=== PATIENT | female | born 1955 | race Caucasian/White ===

== ENCOUNTER → 2021-01-24 13:47 | Outpatient (CLI) | payer OTHER, SELFPAY ==
[2021-01-24] MEDS: COVID-19 VACC, Ad26(JANSSEN)/PF 0.5 ML IM (13:56)
== END ==
PROVIDERS: Visit Provider Internal Medicine
DX: Z23 Encounter for immunization (principal)
CPT/HCPCS: 0031A; 91303

== ENCOUNTER → 2021-11-21 13:30 | Outpatient (CLI) | payer OTHER, SELFPAY ==
--- NOTE | 2021-11-21 | DI.MG.S_ITS ---
BILATERAL DIGITAL SCREENING MAMMOGRAM 3D/2D WITH CAD: 11/21/2021 CLINICAL: Routine screening. Comparison is made to exams dated: 03/21/2015 mammogram, 03/16/2014 mammogram, and 03/09/2013 mammogram - outside location. There are scattered fibroglandular elements in both breasts. Current study was also evaluated with a Computer Aided Detection (CAD) system. No significant masses, calcifications, or other findings are seen in either breast. There has been no significant interval change. IMPRESSION: NEGATIVE There is no mammographic evidence of malignancy. A 1 year screening mammogram is recommended. This exam was interpreted at Station ID: [id number]. NOTE: For mammograms, a report in lay terms will be sent to the patient. Approximately 15% of breast malignancies will not be visualized mammographically. In the management of a palpable breast mass, a negative mammogram must not discourage biopsy of a clinically suspicious lesion. Electronically Signed By: Raymundo Kinsey M.D. at/mary:11/21/2021 16:40:44 letter sent: Normal Exam ACR BI-RADS Category 1: Negative [id number]
== END ==
PROVIDERS: PCP Student in an Organized Health Care Education/Training Program; Referring Provider Student in an Organized Health Care Education/Training Program; Visit Provider Student in an Organized Health Care Education/Training Program
DX: Z12.31 Encounter for screening mammogram for malignant neoplasm of breast (principal)
CPT/HCPCS: 77063; 77067

== ENCOUNTER 2022-08-15 09:52 | Emergency (ER) | payer MEDICARE, SELFPAY ==
[2022-08-15] VITALS (23 sets, daily range): BP systolic 162–192; BP diastolic 78–96; PULSE 67–96; RESP 14–24; TEMP 36.7; O2SAT 91–100; BMI 22.0
--- NOTE | 2022-08-15 10:13 | DI.RAD.S_ITS ---
PROCEDURE: XR ANKLE LT 2V INDICATIONS: fracture TECHNIQUE: 2 views of the ankle were acquired. COMPARISON: None. FINDINGS: Bones: There is complete disruption of ankle mortise with lateral dislocation at tibiotalar joint. There is chronic appearing deformity of the talus and talar dome. Underlying fracture cannot be excluded. Nondisplaced fracture involving distal fibular shaft is also likely present. Soft tissues: No tibiotalar joint effusion. Achilles tendon appears normal. IMPRESSION: Fracture and dislocation involving left ankle as above. Dictated by: Ernie Anne M.D. on 08/15/2022 at 10:44 Approved by: Ernie Anne M.D. on 08/15/2022 at 10:45
[2022-08-15] MEDS: HYDROMORPHONE 1 MG INJ IV (10:19)
[2022-08-15] MEDS: SODIUM CHLORIDE 0.9% 1,000 ML 125 ML IV (10:23)
--- NOTE | 2022-08-15 10:25 | ED_ITS ---
HPI - Extremity Injury (Lower) General Chief Complaint: Extremity Injury, Lower Stated Complaint: fall/lt ankle deformity. Time Seen by Provider: 08/15/22 10:13 Source: patient and EMS Mode of arrival: Ambulatory Limitations: no limitations History of Present Illness HPI Narrative: Patient is a 66-year-old female here for evaluation of an obvious left ankle dislocation and potential fracture. It is in an Aircast placed by EMS. She did receive medication prior to arrival as well. She states she was walking down some stairs where she missed the last couple stairs. She got her foot caught on the stairs and fell forward. She can not stand afterwards. No other injuries from the event. No prior injuries to this ankle. Related Data Previous Rx's Medication Instructions Recorded hydrocodone 5 mg-acetaminophen 325 1 tab PO Q4-6H PRN pain #20 tabs 08/15/22 mg tablet Allergies Allergy/AdvReac Type Severity Reaction Status Date / Time No Known Drug Allergies Allergy Verified 08/15/22 10:19 Review of Systems Constitutional Constitutional: Reports system reviewed and no additional complaints, except as documented Musculoskeletal Musculoskeletal: Reports system reviewed and no additional complaints, except as documented Integumentary/Breasts Skin/Breast: Reports system reviewed and no additional complaints, except as documented Neurologic Neurologic: Reports system reviewed and no additional complaints, except as documented Hematologic/Lymphatic On Anticoagulants: No Patient History Medical History Healthy adult Social History Smoking Status: Never smoker Smoking Status: Never smoker alcohol intake frequency: holidays/special occasions only Substance Use Type: does not use Exam Initial Vital Signs Initial Vital Signs: Vital Signs Temperature 98.0 F 08/15/22 09:55 Pulse Rate 92 H 08/15/22 09:55 Respiratory Rate 18 08/15/22 09:55 Blood Pressure 192/94 H 08/15/22 09:55 Pulse Oximetry 97 08/15/22 09:55 Oxygen Delivery Method 08/15/22 09:55 Const General: cooperative and healthy appearing HENCA Head: normal to inspection and normocephalic Resp Effort & Inspection: normal respiratory effort Auscultation: clear to auscultation bilaterally Cardio Rate: regular rate Rhythm: regular rhythm Pulses: dorsalis pedis present on the left GI Inspection: normal to inspection Skin General: no rashes or lesions noted Neuro Sensory Exam: no sensory deficits noted Extrem General: capillary refill normal Other: Obvious deformity to the left ankle. No left knee tenderness. No left hip tenderness. Psych Appearance: grossly normal and well kempt Procedures Orthopedic Fracture Reduction Fracture #1: Time Out Performed: Yes Side: left Fracture Reduction Location: tibia and fibula Analgesia: procedural sedation Technique: direct manipulation Post Reduction X-rays Demonstrate: acceptable reduction Post-reduction neuro exam: no change Post-reduction vascular exam: no change Splint Applied: Yes Patient Tolerated Procedure: Well Orthopedic Joint Reduction Joint #1: Time Out Performed: Yes Side: left Joint Reduction Location: ankle Analgesia: procedural sedation Technique used: direct manipulation Post-reduction neuro exam: no change Post-reduction vascular: no change Post Reduction X-Ray Obtained: Yes Post Reduction X-Ray Results: reduced Splint Applied: Yes Patient Tolerated Procedure: Well and No complications Orthopedic Splinting/Casting Injury #1: Side: left Lower Extremity Injury Location: ankle Lower Extremity Immobilizer: posterior splint and stirrup splint Other Orthopedic Equipment: crutches Post splinting neuro exam: no change Post splinting vascular exam: no change Placed by: Provider Procedural Sedation Consent signed: Yes Time out performed: Yes Indication: fracture/dislocation reduction ASA Class: I Mallampati Airway Classification: Class II Preparation: nurse monitoring applied, pulse oximeter, capnometry used, supplemental O2 applied, suction/airway equipment at bedside and IV secured IV Propofol dose (mg): 60 Intraservice time/total sedation time (min): 20 ED Sedation Level: Moderate (Concious) Patient Tolerated Procedure: Well and No complications Complications: none Course Orders Ordered: ED Orders 08/15/22 10:00 COVID19 -Nasal RAPID/Pre-Proc Stat 08/15/22 10:13 XR ankle LT 2V Stat 08/15/22 10:49 XR ankle LT 2V Stat 08/15/22 10:54 CT LE LT wo con Stat Sodium Chloride (Normal Saline 0.9%) 1,000 mls @ 125 mls/hr IV CONT ABDULAZIZ Last Admin: 08/15/22 10:23 Dose: 125 mls/hr Documented By: LexieG Discontinued Medications Hydromorphone HCl (Hydromorphone 1 Mg Inj) 1 mg IV NOW ONE Stop: 08/15/22 10:14 Last Admin: 08/15/22 10:19 Dose: 1 mg Documented By: DALIA Propofol (Propofol 200 Mg/20 Ml Vial) 100 mg IV NOW ONE Stop: 08/15/22 10:15 Last Admin: 08/15/22 10:32 Dose: 60 mg Documented By: BT Vital Signs Vital signs: Vital Signs - 8 hr 08/15/22 09:55 08/15/22 10:37 08/15/22 10:57 Temperature 98.0 F Pulse Rate 92 H 80 81 Respiratory Rate 18 18 16 Blood Pressure 192/94 H 175/85 H 182/91 H Pulse Oximetry 97 99 96 Oxygen Delivery Method Room Air Oxygen Flow Rate 1 2 08/15/22 10:45 08/15/22 10:50 08/15/22 10:52 Temperature Pulse Rate 70 70 96 H Respiratory Rate 14 16 24 Blood Pressure 177/90 H 173/85 H Pulse Oximetry 97 98 Oxygen Delivery Method Oxygen Flow Rate 2 2 MDM - Extremity Injury (Lower) Lab Data Labs: Lab Results 08/15/22 Range/Units 10:00 SARS-CoV-2 (PCR) Negative (Negative) Point of Care Testing Test Results Not applicable Imaging Data Extremity x-ray #1: Radiologist's Impression: [place] [address] XRay Report Signed Patient: Aster Munroe MR#: [id number] : 1955 Acct:[id number] Age/Sex: 66 / F Date of Service: 08/15/22 Loc: ED Accession Number: [id number] ?? Procedure: XR ankle LT 2V Ordering Provider: Harlan Pena D.O. PROCEDURE:? XR ANKLE LT 2V ? INDICATIONS:? fracture ? TECHNIQUE:? 2 views of the ankle were acquired.? ? COMPARISON:? None. ? FINDINGS:? ? Bones:? There is complete disruption of ankle mortise with lateral dislocation at tibiotalar joint.? There is chronic appearing deformity of the talus and talar dome.? Underlying fracture cannot be excluded.? Nondisplaced fracture involving distal fibular shaft is also likely present. ? Soft tissues:? No tibiotalar joint effusion.? Achilles tendon appears normal.? ? ? IMPRESSION:? Fracture and dislocation involving left ankle as above. ? ? ? Dictated by: Ernie Anne M.D. on 08/15/2022 at 10:44 ? ? Approved by: Ernie Anne M.D. on 08/15/2022 at 10:45?? Extremity x-ray #2: Radiologist's Impression: [address] [address] XRay Report Signed Patient: Aster Munroe MR#: [id number] : 1955 Acct:[id number] Age/Sex: 66 / F Date of Service: 08/15/22 Loc: ED Accession Number: [id number] ?? Procedure: XR ankle LT 2V Ordering Provider: Harlan Pena D.O. PROCEDURE:? XR ANKLE LT 2V ? INDICATIONS:? post reduction ? TECHNIQUE:? 2 views of the ankle were acquired.? ? COMPARISON:? Located Within [facility], , XR ANKLE LT 2V, 08/15/2022, 10:21. ? FINDINGS:? A splint is present, obscuring fine bony detail. ? Bones:? There is improved alignment of the previously seen ankle fracture dislocation with residual moderately displaced fractures of the medial and lateral malleoli.? Posterior malleolus is not well seen. ? Soft tissues:? No tibiotalar joint effusion.? Achilles tendon appears normal.? ? ? IMPRESSION:? Improved alignment of ankle fracture dislocation. ? ? Dictated by: Jun Mills M.D. on 08/15/2022 at 11:07 ? ? Approved by: Jun Mills M.D. on 08/15/2022 at 11:[address]: Radiologist's Impression: [address] [address] [address] Scan Report Signed Patient: Aster Munroe MR#: [id number] : 1955 Acct:[id number] Age/Sex: 66 / F Date of Service: 08/15/22 Loc: ED Accession Number: [id number] ?? Procedure: CT LE LT wo con Ordering Provider: Harlan Pena D.O. PROCEDURE:? CT LE LT W CON ? INDICATIONS:? fx dislocation L ankle ? TECHNIQUE:? Noncontrast 1-1.5 mm axial sections acquired from above the tibiotalar joint to the bottom of the calcaneus, with coronal and sagittal reformats.? ? COMPARISON:? Located Within [facility], CR, XR ANKLE LT 2V, 08/15/2022, 10:47. ? FINDINGS:? Image quality:? Excellent.? ? Bones:? There is a moderately displaced comminuted fracture of the medial malleolus.? Moderately displaced comminuted fracture of the distal fibula.? Mildly displaced comminuted fracture of the medial talus is present. ? Soft tissues:? Moderate diffuse subcutaneous fat stranding, consistent with soft tissue injury. ? IMPRESSION:? 1. Fractures of the distal tibia, fibula, and medial talus as described above. 2. Diffuse soft tissue injury. ? ? Dictated by: Jun Mills M.D. on 08/15/2022 at 11:39 ? ? Approved by: Jun Mills M.D. on 08/15/2022 at 11:41 MDM Narrative Medical decision making narrative: Patient is improved after treatments here in the ER. CT scan does show medial and lateral malleolar fracture along with a talus fracture. She remains neurovascularly intact. Patient ambulated with a walker without putting pressure on her left leg. She felt more steady with a walker then with crutches. Will provide pain control and follow-up instructions. She was given care instructions and return precautions. She expressed understanding and agreement. Discharge Plan Departure Patient Disposition: Home Clinical Impression: Ankle fracture, left Instructions: How to Choose and Use a Walker, DI for Ankle Fracture, How to Take Care of Your Splint Activity Restrictions/Additional Instructions: The splint as placed today does need to stay on it stay clean and stay dry. You need to treat it like a cast. Do not walk on your left leg. Call the Orthopedic Department at the number provided below for a follow-up. Return to the emergency department for any new or worsening symptoms. Prescriptions: New hydrocodone-acetaminophen 5-325 mg tablet 1 tab PO Q4-6H PRN (Reason: pain) Qty: 20 0RF Referrals: Raina Valenzuela MD [Physician] - Eva Summers MD [Primary Care Provider] -
[2022-08-15 10:32] LABS: COVID19 -Nasal RAPID Negative (Negative)
[2022-08-15] MEDS: propofoL 200 MG/20 ML VIAL 100 MG IV (10:32)
--- NOTE | 2022-08-15 10:49 | DI.RAD.S_ITS ---
PROCEDURE: XR ANKLE LT 2V INDICATIONS: post reduction TECHNIQUE: 2 views of the ankle were acquired. COMPARISON: [facility], CR, XR ANKLE LT 2V, 08/15/2022, 10:21. FINDINGS: A splint is present, obscuring fine bony detail. Bones: There is improved alignment of the previously seen ankle fracture dislocation with residual moderately displaced fractures of the medial and lateral malleoli. Posterior malleolus is not well seen. Soft tissues: No tibiotalar joint effusion. Achilles tendon appears normal. IMPRESSION: Improved alignment of ankle fracture dislocation. Dictated by: Jun Mills M.D. on 08/15/2022 at 11:07 Approved by: Jun Mills M.D. on 08/15/2022 at 11:08
--- NOTE | 2022-08-15 10:54 | DI.CT.S_ITS ---
PROCEDURE: CT LE LT W CON INDICATIONS: fx dislocation L ankle TECHNIQUE: Noncontrast 1-1.5 mm axial sections acquired from above the tibiotalar joint to the bottom of the calcaneus, with coronal and sagittal reformats. COMPARISON: [facility], CR, XR ANKLE LT 2V, 08/15/2022, 10:47. FINDINGS: Image quality: Excellent. Bones: There is a moderately displaced comminuted fracture of the medial malleolus. Moderately displaced comminuted fracture of the distal fibula. Mildly displaced comminuted fracture of the medial talus is present. Soft tissues: Moderate diffuse subcutaneous fat stranding, consistent with soft tissue injury. IMPRESSION: 1. Fractures of the distal tibia, fibula, and medial talus as described above. 2. Diffuse soft tissue injury. Dictated by: Jun Mills M.D. on 08/15/2022 at 11:39 Approved by: Jun Mills M.D. on 08/15/2022 at 11:41
--- NOTE | 2022-08-15 10:58 | PC.NURSE ---
o2 from 1 to 2 liters.
[2022-08-15] MEDS: HYDROCODONE/ACET 5/325 TABLET 1 TAB PO (12:16)
--- NOTE | 2022-08-15 12:30 | PC.NURSE ---
pt ambulated using walker, correct position of leg. pt declined crutches.
== END 2022-08-15 13:15 | disposition home or self-care (01) ==
PROVIDERS: Emergency Provider Emergency Medicine; PCP Student in an Organized Health Care Education/Training Program
DX: S82.62XA Displaced fracture of lateral malleolus of left fibula, initial encounter for closed fracture (principal); S82.52XA Displaced fracture of medial malleolus of left tibia, initial encounter for closed fracture; W10.9XXA Fall (on) (from) unspecified stairs and steps, initial encounter; Z20.822 Contact with and (suspected) exposure to COVID-19
CPT/HCPCS: 27752; 73600; 73700; 87635; 96361; 96374; 99152; 99284; 99285; C9803; J1170; J2704